=== PATIENT | male | born 2000 | race African-American/Black ===

== ENCOUNTER 2019-01-27 08:36 | Emergency (ER) | payer MEDICAID ==
[~2019-01-27] VITALS: Ht 182.9 cm; Wt 82.0 kg
[~2019-01-27 08:36] MED LIST: ARIP30TA2 PO; LITHTAB PO
[2019-01-27] MEDS ORDERED: TRAMADOL 50MG TABLET PO ONE (11:00)
[2019-01-27 13:20] VITALS: BP 132/77
== END 2019-01-27 13:21 | disposition home or self-care (01) ==
LOC: ER 08:36
DX: S83.91XA Sprain of unspecified site of right knee, initial encounter (principal); J02.9 Acute pharyngitis, unspecified; J45.909 Unspecified asthma, uncomplicated; X58.XXXA Exposure to other specified factors, initial encounter; Y93.89 Activity, other specified; Y92.89 Other specified places as the place of occurrence of the external cause; Y99.8 Other external cause status
CPT/HCPCS: 99283

== ENCOUNTER 2019-09-29 16:43 | Emergency (ER) | payer MEDICAID ==
[~2019-09-29] VITALS: Ht 182.9 cm; Wt 73.0 kg
[2019-09-29] MEDS ORDERED: TETANUS, DIPHTHERIA, PERTUSSIS VAC/PF 0.5ML (>7YR OLD) IM ONE (17:00)
[2019-09-29] MEDS ORDERED: IBUPROFEN 600MG TABLET PO ONE (17:00)
[2019-09-29] MEDS ORDERED: CEFAZOLIN 1000MG PREMIX 50 ML IV ONE (17:15)
[2019-09-29 18:09] LABS: BASOPHILS % 0.4 % (0.0-2.0); EOSINOPHILS % 1.4 % (0.0-5.0); HEMATOCRIT. 44.5 % (42.0-52.0); HEMOGLOBIN. 14.4 g/dL (14.0-18.0); LYMPHOCYTES % 9.5 % (20.0-50.0); MEAN CORPUSCULAR HEMOGLOBIN 25.8 pg (28.0-32.0); MEAN CORPUSCULAR VOLUME 79.8 fL (80.0-94.0); MEAN PLATELET VOLUME 9.2 fl (7.4-10.4); MONOCYTES % 6.8 % (2.0-8.0); NEUTROPHILS % 81.9 % (40.0-76.0); PLATELET 169 x1000/uL (130-400); RED BLOOD CELL COUNT 5.58 mill/uL (4.7-6.1); RED CELL DISTRIBUTION WIDTH 14.5 % (11.6-14.6)
[2019-09-29 18:13] LABS: CHLORIDE 108 mEq/L (98-107)
[2019-09-29 18:17] LABS: INR 1.1; PROTHROMBIN TIME 11.4 sec (9.6-11.0)
[2019-09-29 21:30] VITALS: BP 128/62
== END 2019-09-29 23:11 | disposition short-term general hospital (02) ==
LOC: ER 16:43
DX: S08.121A Partial traumatic amputation of right ear, initial encounter (principal); J45.909 Unspecified asthma, uncomplicated; R47.9 Unspecified speech disturbances; F19.10 Other psychoactive substance abuse, uncomplicated; Z79.899 Other long term (current) drug therapy; Y04.1XXA Assault by human bite, initial encounter; Y93.89 Activity, other specified; Y92.89 Other specified places as the place of occurrence of the external cause; Y99.8 Other external cause status
CPT/HCPCS: 36415; 80053; 85025; 85610; 90471; 90715; 96365; 99285; J0690

== ENCOUNTER 2023-08-27 20:58 | Emergency (ER) | payer MEDICAID, OTHER ==
[~2023-08-27] VITALS: Ht 182.9 cm; Wt 86.0 kg
[2023-08-27 22:09] LABS: BASOPHILS % 0.4 % (0.0-2.0); HEMATOCRIT. 42.3 % (42.0-52.0); HEMOGLOBIN. 13.7 g/dL (14.0-18.0); LYMPHOCYTES % 22.8 % (20.0-50.0); MEAN CORPUSCULAR HEMOGLOBIN 26.5 pg (28.0-32.0); MEAN CORPUSCULAR HGB CONC 32.4 g/dL (31.0-37.0); MEAN CORPUSCULAR VOLUME 81.6 fL (80.0-94.0); MEAN PLATELET VOLUME 8.6 fl (7.4-10.4); MONOCYTES % 11.8 % (2.0-8.0); PLATELET 184 x1000/uL (130-400); RED BLOOD CELL COUNT 5.19 mill/uL (4.7-6.1); RED CELL DISTRIBUTION WIDTH 13.7 % (11.6-14.6); WHITE BLOOD COUNT 5.8 x1000/uL (4.5-11.0)
[2023-08-27 22:16] LABS: CHLORIDE 108 mEq/L (98-107); SODIUM 141 mEq/L (136-145)
[2023-08-27 22:17] LABS: CALCIUM 9.5 mg/dL (8.7-10.4); CARBON DIOXIDE 28 mEq/L (21-32)
[2023-08-27 22:22] LABS: CREATININE 0.8 mg/dL (0.6-1.3); GLUCOSE 81 mg/dL (70-105); UREA NITROGEN BLOOD 12 mg/dL (9-23)
[2023-08-27 22:24] LABS: ACETAMINOPHEN < 2 ug/mL (10-30)
[2023-08-27 22:25] LABS: ETHANOL BLOOD < 10 mg/dL (<10)
[2023-08-28] MEDS ORDERED: LORAZEPAM 2MG/ML INJ IM ONE (02:00)
[2023-08-28] MEDS ORDERED: DIPHENHYDRAMINE 50MG/ML VIAL IM ONE (02:00)
[2023-08-28] MEDS ORDERED: HALOPERIDOL LACTATE 5MG/ML VIAL IM ONE (02:00)
[2023-08-28] MEDS: DIPHENHYDRAMINE 50MG/ML VIAL IM NR (02:20)
[2023-08-28] MEDS: HALOPERIDOL LACTATE 5MG/ML VIAL IM NR (02:20)
[2023-08-28] MEDS: LORAZEPAM 2MG/ML INJ IM NR (02:20)
[2023-08-28] MEDS: DIPHENHYDRAMINE 25MG CAPSULE PO NR (02:20)
[2023-08-28] MEDS: MIDAZOLAM HCL 2 MG/2 ML VIAL IV ONE (02:42)
[2023-08-28 04:22] LABS: *AMPHETAMINES SCREEN URINE PRESUMPTIVE POSITIVE (NEGATIVE); *BARBITURATES SCREEN URINE NEGATIVE (NEGATIVE); *BENZODIAZEPINES SCREEN URINE PRESUMPTIVE POSITIVE (NEGATIVE); *COCAINE SCREEN URINE NEGATIVE (NEGATIVE); METHADONE URINE SCREEN NEGATIVE (NEGATIVE); OPIATES URINE SCREEN NEGATIVE (NEGATIVE)
[2023-08-28 04:23] LABS: CANNABINOID URINE SCREEN PRESUMPTIVE POSITIVE (NEGATIVE); ECSTASY MDMA SCREEN URINE NEGATIVE (NEGATIVE); PHENCYCLIDINE URINE SCREEN NEGATIVE (NEGATIVE)
[2023-08-28 04:41] LABS: HEPATITIS B SURFACE ANTIGEN NEGATIVE (Negative)
[2023-08-28 05:02] LABS: HEPATITIS A AB IGM NEGATIVE (Negative)
[2023-08-28 05:03] LABS: HEPATITIS B CORE AB IGM NEGATIVE (Negative); HEPATITIS C AB NON REACTIVE (Neg) (Negative)
[2023-08-28] MEDS ORDERED: BACITRACIN 14GM TUBE TOP NR (05:45)
[2023-08-28 08:32] VITALS: O2SAT 98
[2023-08-28 15:54] LABS: CLARITY URINE CLEAR (CLEAR); COLOR URINE YELLOW (YELLOW); GLUCOSE URINE NEGATIVE (NEGATIVE); KETONES URINE NEGATIVE (NEGATIVE); LEUKOCYTE ESTERASE URINE 2+ (NEGATIVE); NITRITE URINE NEGATIVE (NEGATIVE); OCCULT BLOOD URINE NEGATIVE (NEGATIVE); PH URINE 7.5 (4.5-8.0); PROTEIN URINE NEGATIVE (NEGATIVE); SPECIFIC GRAVITY URINE 1.023 (1.005-1.030)
[2023-08-28 16:14] LABS: BACTERIA URINE TRACE; RBC URINE 0-2 /hpf (0-2); SQUAMOUS EPITHELIAL CELL URINE 1+ /lpf (RARE/1+)
[2023-08-28 18:20] VITALS: BP 142/77; PULSE 81; RESP 18; TEMP 98.6
== END 2023-08-28 19:37 ==
LOC: ER 20:58
DX: R46.2 Strange and inexplicable behavior (principal); J45.909 Unspecified asthma, uncomplicated; Z20.822 Contact with and (suspected) exposure to COVID-19
CPT/HCPCS: 80048; 80307; 80329; 80320; 85025; 87340; 36415; 86705; 86709; 99285; 80305; 81003; 96372; 96374; 87426; J1200; J1630; J2060; J2250; Z7610; G0480